=== PATIENT | male | born 1960 | race Caucasian/White ===

== ENCOUNTER 2022-05-06 06:11 | Day surgery (SDC) | payer OTHER ==
[~2022-05-06] VITALS: Ht 177.8 cm; Wt 117.9 kg
[2022-05-06] MEDS ORDERED: fentaNYL CITRATE/PF 100 MCG/2 ML AMP ONE ×2 (07:23→08:40)
[2022-05-06] MEDS ORDERED: MIDAZOLAM HCL 5 MG/5 ML VIAL ONE (07:24)
[2022-05-06] MEDS ORDERED: MEPERIDINE HCL/PF 25 MG/ML DISP.SYRIN ONE (08:26)
[2022-05-06] MEDS ORDERED: CEFAZOLIN 1 GM IVPB PREMIX 50 ML IV ONE (09:12)
[2022-05-06] MEDS ORDERED: ceFAZolin SODIUM 1 GM in D5W 100 ML IV ONE (09:15)
[2022-05-06 10:18] VITALS: BP_SYST 113
== END 2022-05-06 10:00 | disposition home or self-care (01) ==
LOC: SDS 06:11 → SMU 06:13 → SDS 10:00
PROVIDERS: ATTEND Internal Medicine Gastroenterology
DX: C02.9 Malignant neoplasm of tongue, unspecified (principal); K29.70 Gastritis, unspecified, without bleeding; K29.80 Duodenitis without bleeding; K26.9 Duodenal ulcer, unspecified as acute or chronic, without hemorrhage or perforation; Z79.899 Other long term (current) drug therapy; Z20.822 Contact with and (suspected) exposure to COVID-19
CPT/HCPCS: 36415 ×2; 43246; 82962; 43239; 88305; 88312; 88313; 87426; 99152; U0003; G0378; J0690; J2250; J3010; J2175; J7060